=== PATIENT | female | born 1960 | race Caucasian/White ===

== ENCOUNTER 2020-05-26 02:15 | Inpatient (IN) ==
[2020-05-26] MEDS ORDERED: Naloxone 0.4 MG/ML INJ IVP PRN (04:43)
[2020-05-26] MEDS ORDERED: Ondansetron ODT 4 MG TAB.RAPDIS SL PRN (04:43)
[2020-05-26] MEDS ORDERED: Perflutren Lipid Microsphere 1.3 ML in 0.9 % Sodium Chloride 8.7 ML IVP PRN (04:47)
[2020-05-26] MEDS: 0.9 % Sodium Chloride 1,000 ML IVC SCH ×2 (06:15→17:12)
[2020-05-26 06:28] LABS: Alanine Aminotransferase 23 Units/L (7-52); Albumin/Globulin Ratio 1.8 (1.1-2.2); Alkaline Phosphatase 50 Units/L (34-104); Aspartate Amino Transferase 20 Units/L (13-39); BUN/Creatinine Ratio 25 (6-26); Bilirubin,Total 0.3 mg/dL (0.3-1.0); Blood Urea Nitrogen 26 mg/dL (8-23); Calcium 8.8 mg/dL (8.6-10.3); Carbon Dioxide 24 mEq/L (23-29); Chloride 106 mEq/L (98-107); Chol/HDL Ratio 6.5 (0-4.9); Cholesterol 182 mg/dL (< 200); Globulin 2.2 g/dL (2.4-3.5); Glucose 105 mg/dL (70-105); HDL Cholesterol 28 mg/dL (40-59); LDL Cholesterol,Calculated 83 mg/dL (< 100); Magnesium 1.9 mg/dL (1.6-2.6); Osmolality,Calculated 291 (280-300); Phosphorous 4.5 mg/dL (2.7-4.5); Potassium 3.7 mEq/L (3.5-5.1); Sodium 138 mEq/L (136-145); Total Protein 6.2 g/dL (6.4-8.9); Triglycerides 357 mg/dL (< 150); Troponin I < 0.03 ng/mL (< 0.04); eGFR For African Americans > 60 (> 60); eGFR For Non-African Americans 53 (> 60)
[2020-05-26 06:39] LABS: Thyroid Stimulating Hormone 3.776 mcIU/mL (0.340-5.600)
[2020-05-26] MEDS ORDERED: Pantoprazole 80 MG in 0.9 % Sodium Chloride 50 ML IVPB ONE (07:55)
[2020-05-26 08:11] LABS: Estimated Average Glucose 131 mg/dl; Hemoglobin A1C 6.2 %
[2020-05-26] MEDS: Iron Sucrose Complex 250 MG in 0.9 % Sodium Chloride 250 ML IVPB SCH (10:01)
[2020-05-26] MEDS: lisinopriL 20 MG TABLET PO SCH (10:46)
[2020-05-26] MEDS: Pantoprazole 40 MG VIAL IVP SCH (17:09)
[2020-05-27] MEDS: Acetaminophen 325 MG TABLET PO PRN ×3 (00:22→17:56)
[2020-05-27 05:34] LABS: Basophils # 0.1 K/mcL (0.0-0.2); Basophils % 0.8 %; Eosinophils # 0.3 K/mcL (0.0-0.6); Eosinophils % 4.7 %; Hemoglobin 8.4 g/dL (11.5-15.4); Immature Granulocytes % 0.1 % (0-4); Lymphocytes # 2.3 K/mcL (0.6-4.6); Lymphocytes % 31.2 %; Mean Corpuscular Hemoglobin 23.2 pg (28.0-33.3); Mean Corpuscular Volume 80.1 fL (83.0-100.0); Mean Platelet Volume 10.3 fL (9.4-12.4); Monocytes # 0.7 K/mcL (0.0-1.3); Monocytes % 9.7 %; Neutrophils # 3.9 K/mcL (1.6-8.9); Platelet Count 279 K/mcL (140-400); Red Blood Count 3.62 M/mcL (3.82-4.97); Red Cell Distribution Width 14.7 % (11.5-14.5); Segmented Neutrophils % 53.5 %; White Blood Count 7.2 K/mcL (4.3-11.1)
[2020-05-27] MEDS: Pantoprazole 40 MG VIAL IVP SCH (05:38)
[2020-05-27 05:59] LABS: BUN/Creatinine Ratio 17 (6-26); Blood Urea Nitrogen 12 mg/dL (8-23); Calcium 8.8 mg/dL (8.6-10.3); Carbon Dioxide 24 mEq/L (23-29); Chloride 109 mEq/L (98-107); Glucose 87 mg/dL (70-105); Osmolality,Calculated 291 (280-300); Potassium 3.8 mEq/L (3.5-5.1); Sodium 141 mEq/L (136-145); eGFR For African Americans > 60 (> 60); eGFR For Non-African Americans > 60 (> 60)
[2020-05-27] MEDS ORDERED: Lidocaine -MPF 2% 2 ML VIAL ONE (08:06)
[2020-05-27] MEDS ORDERED: *HR* Midazolam HCl 2 MG/2 ML VIAL ONE (08:13)
[2020-05-27] MEDS ORDERED: *HR* Metoprolol 5 MG/5 ML VIAL IVP ONE (08:15)
[2020-05-27] MEDS ORDERED: Isovue-370 500 ML BOTTLE IVP ONE (08:58)
[2020-05-27 09:32] LABS: Alanine Aminotransferase 25 Units/L (7-52); Albumin 3.8 g/dL (3.5-5.7); Albumin/Globulin Ratio 1.5 (1.1-2.2); Alkaline Phosphatase 47 Units/L (34-104); Aspartate Amino Transferase 21 Units/L (13-39); Bilirubin,Direct 0.1 mg/dL (0.0-0.2); Bilirubin,Indirect 0.3 mg/dL (0.0-1.0); Bilirubin,Total 0.4 mg/dL (0.3-1.0); Globulin 2.5 g/dL (2.4-3.5); Total Protein 6.3 g/dL (6.4-8.9)
[2020-05-27 09:41] LABS: Carcinoembryonic Antigen 5.2 ng/mL (Less than 5.0)
[2020-05-27] MEDS: Iron Sucrose Complex 250 MG in 0.9 % Sodium Chloride 250 ML IVPB SCH (10:40)
[2020-05-27] MEDS: lisinopriL 20 MG TABLET PO SCH (10:40)
[2020-05-27] MEDS ORDERED: Isovue-370 500 ML BOTTLE PO ONE (11:03)
[2020-05-27] MEDS ORDERED: Melatonin 3 MG TABLET PO PRN (21:49)
[2020-05-28] MEDS ORDERED: *HR* HYDROcodone/Acet 5/325 mg TABLET PO ONE (04:09)
[2020-05-28 04:28] LABS: Hematocrit 29.2 % (35.3-44.9); Hemoglobin 8.5 g/dL (11.5-15.4); Mean Corpuscular HGB Conc 29.1 g/dL (31.6-35.5); Mean Corpuscular Hemoglobin 23.3 pg (28.0-33.3); Mean Platelet Volume 10.5 fL (9.4-12.4); Platelet Count 264 K/mcL (140-400); Red Blood Count 3.65 M/mcL (3.82-4.97); White Blood Count 6.9 K/mcL (4.3-11.1)
[2020-05-28 04:44] LABS: BUN/Creatinine Ratio 11 (6-26); Blood Urea Nitrogen 8 mg/dL (8-23); Calcium 9.3 mg/dL (8.6-10.3); Carbon Dioxide 25 mEq/L (23-29); Chloride 106 mEq/L (98-107); Glucose 85 mg/dL (70-105); Osmolality,Calculated 286 (280-300); Potassium 3.6 mEq/L (3.5-5.1); Sodium 139 mEq/L (136-145); eGFR For African Americans > 60 (> 60); eGFR For Non-African Americans > 60 (> 60)
[2020-05-28] MEDS ORDERED: Lidocaine HCL 4 ML Topical Solution (Laryng-O-Jet Kit Sterile Pak) TP ONE (07:06)
[2020-05-28] MEDS ORDERED: *HR* Midazolam HCl 2 MG/2 ML VIAL ONE (07:07)
[2020-05-28] MEDS ORDERED: *HR* FentaNYL (PF) 100 MCG/2 ML VIAL ONE (07:07)
[2020-05-28] MEDS ORDERED: *HR* Propofol 200 MG/20 ML VIAL IVP ONE (07:07)
[2020-05-28] MEDS ORDERED: *HR* Succinylcholine 200 MG/10 ML VIAL IVP ONE (07:09)
[2020-05-28] MEDS ORDERED: *HR* Rocuronium Bromide 50 MG/5 ML VIAL ONE (07:09)
[2020-05-28] MEDS ORDERED: Lidocaine -MPF 2% 2 ML VIAL ONE (07:09)
[2020-05-28] MEDS ORDERED: Ondansetron 4 MG/2 ML VIAL ONE (07:09)
[2020-05-28] MEDS ORDERED: Dexamethasone 4 MG/ML VIAL ONE (07:09)
[2020-05-28] MEDS ORDERED: cefOXitin 1,000 MG, Sodium Chloride IRRigation 1,000 ML IR ONE (08:00)
[2020-05-28] MEDS ORDERED: ceFAZolin 2,000 MG in Water for inj. (sterile) 20 ML IVP ONE (08:29)
[2020-05-28] MEDS ORDERED: *HR* HYDROmorphone PF 0.5 MG/0.5 ML SYRINGE IVP PRN (08:35)
[2020-05-28] MEDS ORDERED: *HR* OxyCODONE Immed Rel 5 MG TABLET PO PRN (08:35)
[2020-05-28] MEDS ORDERED: Ondansetron 4 MG/2 ML VIAL IVP PRN (08:35)
[2020-05-28] MEDS ORDERED: EPHEDrine 50 MG/ML VIAL ONE (08:47)
[2020-05-28] MEDS ORDERED: *HR* HYDROMORPHONE 2 MG/ML VIAL ONE (09:12)
[2020-05-28] MEDS ORDERED: Naloxone 0.4 MG/ML INJ IVP PRN (12:47)
[2020-05-28] MEDS ORDERED: Morphine PCA 30 MG/ 30 ML 30 ML PCA.VIAL IVC PRN (12:47)
[2020-05-28] MEDS: *HR* Heparin 5,000 UNIT/ML VIAL SQ SCH ×2 (13:02→16:32)
[2020-05-28] MEDS: *HR* Metoprolol 5 MG/5 ML VIAL IVP SCH ×3 (13:11→23:51)
[2020-05-28] MEDS: Acetaminophen IV 1,000 MG/100 ML BAG IVPB SCH ×3 (13:30→23:53)
[2020-05-28] MEDS: Iron Sucrose Complex 250 MG in 0.9 % Sodium Chloride 250 ML IVPB SCH (15:22)
[2020-05-28] MEDS: lisinopriL 20 MG TABLET PO SCH (15:30)
[2020-05-28] MEDS: ceFAZolin 1,000 MG in Water for inj. (sterile) 10 ML IVP SCH ×2 (15:58→23:47)
[2020-05-28] MEDS: D5% in 0.45% NACL w KCl 20 MEQ/1,000 ML MLS IVC SCH (18:02)
[2020-05-28] MEDS: *HR* HYDROmorphone PF 0.5 MG/0.5 ML SYRINGE IVP PRN ×2 (18:03→23:56)
[2020-05-28] MEDS: *HR* LORazepam 2 MG/ML VIAL IVP PRN (22:08)
[2020-05-29 03:16] LABS: Basophils % 0.1 %; Hematocrit 27.4 % (35.3-44.9); Immature Granulocytes % 0.3 % (0-4); Lymphocytes # 1.5 K/mcL (0.6-4.6); Lymphocytes % 10.4 %; Mean Corpuscular HGB Conc 29.2 g/dL (31.6-35.5); Mean Corpuscular Hemoglobin 24.2 pg (28.0-33.3); Mean Platelet Volume 10.5 fL (9.4-12.4); Monocytes # 1.6 K/mcL (0.0-1.3); Monocytes % 11.1 %; Platelet Count 245 K/mcL (140-400); Red Cell Distribution Width 15.2 % (11.5-14.5); Segmented Neutrophils % 78.1 %
[2020-05-29 03:26] LABS: Neutrophils # 11.6 K/mcL (1.6-8.9); White Blood Count 14.8 K/mcL (4.3-11.1)
[2020-05-29 03:36] LABS: BUN/Creatinine Ratio 12 (6-26); Blood Urea Nitrogen 12 mg/dL (8-23); Calcium 8.5 mg/dL (8.6-10.3); Carbon Dioxide 27 mEq/L (23-29); Chloride 105 mEq/L (98-107); Glucose 120 mg/dL (70-105); Magnesium 1.7 mg/dL (1.6-2.6); Osmolality,Calculated 287 (280-300); Sodium 138 mEq/L (136-145); eGFR For African Americans > 60 (> 60); eGFR For Non-African Americans 57 (> 60)
[2020-05-29] MEDS: *HR* LORazepam 2 MG/ML VIAL IVP PRN (04:42)
[2020-05-29] MEDS: *HR* Metoprolol 5 MG/5 ML VIAL IVP SCH ×4 (05:41→23:03)
[2020-05-29] MEDS: Acetaminophen IV 1,000 MG/100 ML BAG IVPB SCH ×2 (05:43→23:43)
[2020-05-29] MEDS: *HR* HYDROmorphone PF 0.5 MG/0.5 ML SYRINGE IVP PRN (05:46)
[2020-05-29] MEDS: D5% in 0.45% NACL w KCl 20 MEQ/1,000 ML MLS IVC SCH ×2 (05:55→20:13)
[2020-05-29] MEDS: *HR* Heparin 5,000 UNIT/ML VIAL SQ SCH ×2 (06:03→17:36)
[2020-05-29] MEDS: ceFAZolin 1,000 MG in Water for inj. (sterile) 10 ML IVP SCH ×3 (08:33→22:56)
[2020-05-29] MEDS: Pantoprazole 40 MG VIAL IVP SCH (08:33)
[2020-05-29] MEDS: Ketorolac 30 MG/ML VIAL IVP SCH ×2 (11:14→17:50)
[2020-05-29] MEDS ORDERED: Acetaminophen IV 1,000 MG/100 ML BAG IVPB SCH (16:00)
[2020-05-29] MEDS ORDERED: *HR* LORazepam 2 MG/ML VIAL IVP ONE (22:20)
[2020-05-30] MEDS: Ketorolac 30 MG/ML VIAL IVP SCH ×4 (01:06→17:07)
[2020-05-30] MEDS: *HR* Metoprolol 5 MG/5 ML VIAL IVP SCH ×3 (05:14→17:07)
[2020-05-30] MEDS: *HR* Heparin 5,000 UNIT/ML VIAL SQ SCH ×2 (05:36→17:07)
[2020-05-30 06:37] LABS: Basophils % 0.3 %; Eosinophils # 0.2 K/mcL (0.0-0.6); Eosinophils % 1.3 %; Hemoglobin 8.1 g/dL (11.5-15.4); Immature Granulocytes % 0.6 % (0-4); Lymphocytes # 1.5 K/mcL (0.6-4.6); Lymphocytes % 10.6 %; Mean Corpuscular Hemoglobin 24.5 pg (28.0-33.3); Mean Corpuscular Volume 81.6 fL (83.0-100.0); Mean Platelet Volume 11.1 fL (9.4-12.4); Monocytes # 1.6 K/mcL (0.0-1.3); Monocytes % 11.2 %; Platelet Count 235 K/mcL (140-400); Red Blood Count 3.31 M/mcL (3.82-4.97); Red Cell Distribution Width 15.1 % (11.5-14.5); White Blood Count 14.4 K/mcL (4.3-11.1)
[2020-05-30 07:01] LABS: BUN/Creatinine Ratio 10 (6-26); Blood Urea Nitrogen 7 mg/dL (8-23); Calcium 9.2 mg/dL (8.6-10.3); Carbon Dioxide 26 mEq/L (23-29); Chloride 101 mEq/L (98-107); Glucose 111 mg/dL (70-105); Osmolality,Calculated 279 (280-300); Potassium 3.6 mEq/L (3.5-5.1); Sodium 135 mEq/L (136-145); eGFR For African Americans > 60 (> 60); eGFR For Non-African Americans > 60 (> 60)
[2020-05-30] MEDS: ceFAZolin 1,000 MG in Water for inj. (sterile) 10 ML IVP SCH ×2 (09:04→15:24)
[2020-05-30] MEDS: Pantoprazole 40 MG VIAL IVP SCH (09:04)
[2020-05-30] MEDS: Acetaminophen IV 1,000 MG/100 ML BAG IVPB SCH ×2 (09:41→16:14)
[2020-05-30] MEDS: D5% in 0.45% NACL w KCl 20 MEQ/1,000 ML MLS IVC SCH ×2 (09:41→22:54)
[2020-05-30] MEDS ORDERED: *HR* Labetalol 20 MG/4 ML SYRINGE IVP ONE (12:27)
[2020-05-30] MEDS: niCARdipine 20 MG/200 ML MLS IVC SCH ×2 (15:23→20:11)
[2020-05-30] MEDS: *HR* HYDROmorphone (PF) 1 MG/ML SYRINGE IVP PRN ×2 (15:48→20:17)
[2020-05-30] MEDS: Ondansetron 4 MG/2 ML VIAL IVP PRN ×2 (15:49→20:23)
[2020-05-31] MEDS: Ketorolac 30 MG/ML VIAL IVP SCH ×3 (00:21→12:53)
[2020-05-31] MEDS: ceFAZolin 1,000 MG in Water for inj. (sterile) 10 ML IVP SCH ×2 (00:21→08:05)
[2020-05-31] MEDS: *HR* Metoprolol 5 MG/5 ML VIAL IVP SCH ×3 (00:21→08:07)
[2020-05-31] MEDS: niCARdipine 20 MG/200 ML MLS IVC SCH ×3 (00:22→12:51)
[2020-05-31] MEDS: Acetaminophen IV 1,000 MG/100 ML BAG IVPB SCH (00:23)
[2020-05-31 00:59] LABS: Basophils # 0.1 K/mcL (0.0-0.2); Basophils % 0.4 %; Eosinophils # 0.5 K/mcL (0.0-0.6); Eosinophils % 3.1 %; Hemoglobin 7.9 g/dL (11.5-15.4); Immature Granulocytes % 0.6 % (0-4); Lymphocytes # 1.7 K/mcL (0.6-4.6); Lymphocytes % 10.7 %; Mean Corpuscular HGB Conc 29.3 g/dL (31.6-35.5); Mean Corpuscular Hemoglobin 23.4 pg (28.0-33.3); Mean Corpuscular Volume 80.1 fL (83.0-100.0); Mean Platelet Volume 10.7 fL (9.4-12.4); Monocytes # 1.6 K/mcL (0.0-1.3); Monocytes % 9.9 %; Neutrophils # 11.9 K/mcL (1.6-8.9); Platelet Count 257 K/mcL (140-400); Red Blood Count 3.37 M/mcL (3.82-4.97); Red Cell Distribution Width 15.4 % (11.5-14.5); Segmented Neutrophils % 75.3 %; White Blood Count 15.7 K/mcL (4.3-11.1)
[2020-05-31 01:18] LABS: BUN/Creatinine Ratio 14 (6-26); Blood Urea Nitrogen 9 mg/dL (8-23); Calcium 8.7 mg/dL (8.6-10.3); Carbon Dioxide 25 mEq/L (23-29); Chloride 98 mEq/L (98-107); Glucose 114 mg/dL (70-105); Osmolality,Calculated 272 (280-300); Potassium 3.7 mEq/L (3.5-5.1); Sodium 131 mEq/L (136-145); eGFR For African Americans > 60 (> 60); eGFR For Non-African Americans > 60 (> 60)
[2020-05-31] MEDS ORDERED: Aspirin 325 MG TABLET PO ONE (04:31)
[2020-05-31] MEDS ORDERED: Gadolinium Contrast Agent (WT Based) IV PRN (04:35)
[2020-05-31] MEDS ORDERED: Perflutren Lipid Microsphere 1.3 ML in 0.9 % Sodium Chloride 8.7 ML IVP PRN (04:37)
[2020-05-31] MEDS: Pantoprazole 40 MG VIAL IVP SCH (08:06)
[2020-05-31] MEDS ORDERED: Isovue-370 500 ML BOTTLE IVP ONE (10:23)
[2020-05-31] MEDS: D5% in 0.45% NACL w KCl 20 MEQ/1,000 ML MLS IVC SCH (12:52)
[2020-05-31 16:08] VITALS: BP 149/78
[2020-05-31] MEDS ORDERED: niCARdipine 20 MG/200 ML MLS IVC ONE (16:18)
== END 2020-05-31 16:35 | disposition short-term general hospital (02) | DRG 329 ==
LOC: 3BNU → SUATTDRO 05-28 16:00 → 2NNU 05-30 15:17
PROVIDERS: ADMIT Internal Medicine; ATTEND Pharmacist
PROC: ENDOCBX (2020-05-27 09:15)